=== PATIENT | male | born 1955 | race Caucasian/White ===

== ENCOUNTER → 2023-11-25 09:16 | Outpatient (CLI) | payer MEDICARE, OTHER, SELFPAY | PROVIDERS: Referring Provider Nurse Practitioner; Visit Provider Surgery | DX: E11.621 Type 2 diabetes mellitus with foot ulcer (principal); L97.516 Non-pressure chronic ulcer of other part of right foot with bone involvement without evidence of necrosis; E11.42 Type 2 diabetes mellitus with diabetic polyneuropathy; L84 Corns and callosities; L53.9 Erythematous condition, unspecified; I10 Essential (primary) hypertension; Z79.2 Long term (current) use of antibiotics | CPT/HCPCS: 11042; 87070; 87075; 87077; 87147; 87205; 99203; 99214 ==

== ENCOUNTER → 2023-11-25 11:11 | Outpatient (CLI) | payer MEDICARE, OTHER, SELFPAY ==
--- NOTE | 2023-11-25 11:13 | DI.RAD.S_ITS ---
PROCEDURE: XR FOOT RT MIN 3V INDICATIONS: Non-healing ulcer of right 2nd toe TECHNIQUE: 3 views of the foot were acquired. COMPARISON: None. FINDINGS: Bones: No fractures or dislocations. No suspicious bony lesions. Interphalangeal joint space narrowing with osteophytosis, most prominent in the 1st interphalangeal joint. Hammertoe deformities of the 2nd through 5th digits. Soft tissues: No tibiotalar joint effusion. Achilles tendon appears normal. Soft tissue ulcer of the plantar 2nd digit. IMPRESSION: Soft tissue ulcer of the plantar 2nd digit, without bony erosion to suggest active osteomyelitis. Dictated by: Marlon Bustamante M.D. on 11/25/2023 at 14:02 Approved by: Marlon Bustamante M.D. on 11/25/2023 at 14:03
== END ==
PROVIDERS: Referring Provider Surgery; Visit Provider Surgery
DX: E11.621 Type 2 diabetes mellitus with foot ulcer (principal); L97.519 Non-pressure chronic ulcer of other part of right foot with unspecified severity; L97.516 Non-pressure chronic ulcer of other part of right foot with bone involvement without evidence of necrosis; E11.42 Type 2 diabetes mellitus with diabetic polyneuropathy; L84 Corns and callosities; L53.9 Erythematous condition, unspecified; I10 Essential (primary) hypertension; Z79.2 Long term (current) use of antibiotics
CPT/HCPCS: 11042; 73630; 87070; 87075; 87077; 87147; 87205; 99214

== ENCOUNTER → 2023-12-02 14:10 | Outpatient (CLI) | payer MEDICARE, OTHER, SELFPAY | LOC: WC 14:19 | PROVIDERS: Referring Provider Nurse Practitioner; Visit Provider Nurse Practitioner Family | DX: L97.812 Non-pressure chronic ulcer of other part of right lower leg with fat layer exposed (principal); E11.621 Type 2 diabetes mellitus with foot ulcer; E11.42 Type 2 diabetes mellitus with diabetic polyneuropathy; L84 Corns and callosities; R60.0 Localized edema; I10 Essential (primary) hypertension; Z79.2 Long term (current) use of antibiotics | CPT/HCPCS: 11042; 99214 ==

== ENCOUNTER → 2023-12-09 08:50 | Outpatient (CLI) | payer MEDICARE, OTHER, SELFPAY | PROVIDERS: Referring Provider Nurse Practitioner; Visit Provider Surgery | DX: L97.512 Non-pressure chronic ulcer of other part of right foot with fat layer exposed (principal); E11.621 Type 2 diabetes mellitus with foot ulcer; E11.42 Type 2 diabetes mellitus with diabetic polyneuropathy; L84 Corns and callosities; R60.0 Localized edema; R23.4 Changes in skin texture; I10 Essential (primary) hypertension | CPT/HCPCS: 11042 ==

== ENCOUNTER → 2023-12-16 15:03 | Outpatient (CLI) | payer MEDICARE, OTHER, SELFPAY | PROVIDERS: Referring Provider Nurse Practitioner; Visit Provider Surgery | DX: L97.512 Non-pressure chronic ulcer of other part of right foot with fat layer exposed (principal); E11.621 Type 2 diabetes mellitus with foot ulcer; E11.42 Type 2 diabetes mellitus with diabetic polyneuropathy; L84 Corns and callosities; R60.0 Localized edema; R23.4 Changes in skin texture; I10 Essential (primary) hypertension | CPT/HCPCS: 11042 ==

== ENCOUNTER → 2023-12-23 09:12 | Outpatient (CLI) | payer MEDICARE, OTHER, SELFPAY | LOC: WC 12-24 09:13 | PROVIDERS: Referring Provider Nurse Practitioner; Visit Provider Surgery | DX: L97.512 Non-pressure chronic ulcer of other part of right foot with fat layer exposed (principal); E11.621 Type 2 diabetes mellitus with foot ulcer; L84 Corns and callosities; R60.0 Localized edema; I10 Essential (primary) hypertension | CPT/HCPCS: 11042; 99212; 99213 ==

== ENCOUNTER → 2023-12-30 11:18 | Outpatient (CLI) | payer MEDICARE, OTHER, SELFPAY | LOC: WC 11:28 | PROVIDERS: Referring Provider Nurse Practitioner; Visit Provider Surgery | DX: E11.621 Type 2 diabetes mellitus with foot ulcer (principal); L97.512 Non-pressure chronic ulcer of other part of right foot with fat layer exposed; E11.42 Type 2 diabetes mellitus with diabetic polyneuropathy; L84 Corns and callosities; R60.0 Localized edema; R23.4 Changes in skin texture; I10 Essential (primary) hypertension | CPT/HCPCS: 11042 ==

== ENCOUNTER → 2024-01-11 13:48 | Outpatient (CLI) | payer MEDICARE, OTHER, SELFPAY | LOC: WC 13:56 | PROVIDERS: Referring Provider Nurse Practitioner; Visit Provider Surgery | DX: E11.621 Type 2 diabetes mellitus with foot ulcer (principal); E11.42 Type 2 diabetes mellitus with diabetic polyneuropathy; L97.512 Non-pressure chronic ulcer of other part of right foot with fat layer exposed; L84 Corns and callosities; R60.0 Localized edema; I10 Essential (primary) hypertension; R23.4 Changes in skin texture | CPT/HCPCS: 11042; 99212 ==

== ENCOUNTER → 2024-01-13 14:29 | Outpatient (CLI) | payer MEDICARE, OTHER, SELFPAY | LOC: WC 14:30 | PROVIDERS: Referring Provider Nurse Practitioner; Visit Provider Surgery | DX: E11.621 Type 2 diabetes mellitus with foot ulcer (principal); L97.512 Non-pressure chronic ulcer of other part of right foot with fat layer exposed; R60.0 Localized edema; L84 Corns and callosities; R23.4 Changes in skin texture | CPT/HCPCS: 99212 ==

== ENCOUNTER → 2024-01-20 15:46 | Outpatient (CLI) | payer MEDICARE, OTHER, SELFPAY | PROVIDERS: Referring Provider Nurse Practitioner; Visit Provider Surgery | DX: E11.621 Type 2 diabetes mellitus with foot ulcer (principal); E11.42 Type 2 diabetes mellitus with diabetic polyneuropathy; L97.512 Non-pressure chronic ulcer of other part of right foot with fat layer exposed; L97.312 Non-pressure chronic ulcer of right ankle with fat layer exposed; L84 Corns and callosities; R60.0 Localized edema; I10 Essential (primary) hypertension; G47.30 Sleep apnea, unspecified | CPT/HCPCS: 99213 ==

== ENCOUNTER → 2024-01-27 15:22 | Outpatient (CLI) | payer MEDICARE, OTHER, SELFPAY | LOC: WC 15:24 | PROVIDERS: PCP Nurse Practitioner; Referring Provider Nurse Practitioner; Visit Provider Surgery | DX: E11.628 Type 2 diabetes mellitus with other skin complications (principal); L84 Corns and callosities; R60.0 Localized edema | CPT/HCPCS: 99212; 99213 ==

== ENCOUNTER → 2024-02-03 09:38 | Outpatient (CLI) | payer MEDICARE, OTHER, SELFPAY | LOC: WC 09:39 | PROVIDERS: PCP Nurse Practitioner; Referring Provider Nurse Practitioner; Visit Provider Surgery | DX: E11.621 Type 2 diabetes mellitus with foot ulcer (principal); E11.42 Type 2 diabetes mellitus with diabetic polyneuropathy; L97.512 Non-pressure chronic ulcer of other part of right foot with fat layer exposed; L84 Corns and callosities; R60.0 Localized edema; I10 Essential (primary) hypertension | CPT/HCPCS: 11042 ==

== ENCOUNTER → 2024-02-07 09:44 | Outpatient (CLI) | payer MEDICARE, OTHER, SELFPAY | LOC: WC 09:45 | PROVIDERS: PCP Nurse Practitioner; Referring Provider Nurse Practitioner; Visit Provider Surgery | DX: E11.621 Type 2 diabetes mellitus with foot ulcer (principal); L97.512 Non-pressure chronic ulcer of other part of right foot with fat layer exposed; L84 Corns and callosities; R60.0 Localized edema | CPT/HCPCS: 99212 ==

== ENCOUNTER → 2024-02-10 14:02 | Outpatient (CLI) | payer MEDICARE, OTHER, SELFPAY | LOC: WC 14:04 | PROVIDERS: PCP Nurse Practitioner; Referring Provider Nurse Practitioner; Visit Provider Surgery | DX: E11.621 Type 2 diabetes mellitus with foot ulcer (principal); E11.42 Type 2 diabetes mellitus with diabetic polyneuropathy; L97.511 Non-pressure chronic ulcer of other part of right foot limited to breakdown of skin; L84 Corns and callosities; R60.0 Localized edema | CPT/HCPCS: 99213 ==

== ENCOUNTER → 2024-02-18 14:54 | Outpatient (CLI) | payer MEDICARE, OTHER, SELFPAY | PROVIDERS: PCP Nurse Practitioner; Referring Provider Nurse Practitioner; Visit Provider Physician Assistant | DX: E11.42 Type 2 diabetes mellitus with diabetic polyneuropathy (principal); L84 Corns and callosities; R60.0 Localized edema; I10 Essential (primary) hypertension | CPT/HCPCS: 99212; 99213 ==

== ENCOUNTER → 2024-02-24 15:53 | Outpatient (CLI) | payer MEDICARE, OTHER, SELFPAY | LOC: WC 15:54 | PROVIDERS: PCP Nurse Practitioner; Referring Provider Nurse Practitioner; Visit Provider Surgery | DX: Z09 Encounter for follow-up examination after completed treatment for conditions other than malignant neoplasm (principal); Z86.31 Personal history of diabetic foot ulcer | CPT/HCPCS: 99211; 99213 ==

== ENCOUNTER → 2024-05-26 07:13 | Outpatient (CLI) | payer MEDICARE, OTHER, SELFPAY ==
[2024-05-26 07:48] LABS: Add Manual Diff / Slide Review NO; Basophils Absolute Auto 100 /uL (0-100); Basophils Percent Auto 0.9 % (0-2); Eosinophils Absolute Auto 400 /uL (0-450); Eosinophils Percent Auto 4.6 % (2-4); Hematocrit 44.8 % (41-53); Lymphocytes Absolute Auto 1700 /uL (1100-4500); Lymphocytes Percent Auto 18.9 % (25-40); Mean Corpuscular HGB Conc 33.5 % (30-36); Mean Corpuscular Hemoglobin 31.1 PG (26-34); Monocytes Absolute Auto 700 /uL (0-900); Monocytes Percent Auto 7.8 % (3-14); Neutrophils Absolute Auto 6100 /uL (1500-7000); Neutrophils Percent Auto 67.8 % (50-75); Platelet Count 239 X10^3/uL (150-400); Red Blood Cell Count 4.81 X10^6/uL (4.5-5.9); Red Cell Distribution Width 14.8 % (11.6-14.8); White Blood Cell Count 9.1 X10^3/uL (4.5-11.0)
--- NOTE | 2024-05-26 07:52 | EKG_ITS ---
[address] [id number] Test Date: 2024-05-26 Pat Name: Librado Moody Department: [facility] Room: Gender: Male [employer]: JORGE : 1955 Requested By: Order Number: [id number] Reading MD: John Solano Measurements Intervals [place] Rate: 94 P: 49 NC: 198 QRS: 51 QRSD: 90 T: 29 QT: 354 QTc: 442 Interpretive Statements Normal sinus rhythm Electronically Signed On 05-26-2024 20:14:15 PDT by John Solano
[2024-05-26 09:45] LABS: Hemoglobin A1C% w Est Avg Glu 7.6 % (4.0-6.0)
== END ==
PROVIDERS: PCP Nurse Practitioner; Referring Provider Podiatrist; Visit Provider Podiatrist
DX: Z01.818 Encounter for other preprocedural examination (principal); R73.9 Hyperglycemia, unspecified; Z01.812 Encounter for preprocedural laboratory examination
CPT/HCPCS: 36415; 83036; 85025; 93005